=== PATIENT | female | born 1975 | race African-American/Black ===

== ENCOUNTER 2019-06-23 09:04 | Outpatient (CLI) | payer OTHER, SELFPAY ==
--- NOTE | ~2019-06-23 | MR_ITS ---
EXAMINATION: 1. MR hand RT wo/w con 2. MR hand LT wo/w con DATE: 06/23/2019 11:18 INDICATION: Rheumatoid arthritis, unspecified. TECHNIQUE: Magnetic resonance imaging (MRI) of the right hand and left hand was performed without and with 17 mL MultiHance intravenous contrast. Sequences included coronal, axial, and sagittal T1-weigh jcarlos FSE and T2-weighted FS FSE, axial T1-weighted FS FSE, and postcontrast axial and coronal T1-weigh jcarlos FS FSE. COMPARISON: Hand radiographs 06/30/2018 FINDINGS: RIGHT HAND MRI: Bone alignment is normal. No fracture. There is enhancing material in and around the second metacarpophalangeal joint with erosions of the head of second metacarpal and base of second pr oximal phalanx with edema-like marrow signal intensity. There is enhancing synovitis involving the ot her metacarpophalangeal joints. There is mild to moderate osteoarthritis of many of the interphalange al joints with a distal predominance. There is enhancing tenosynovitis involving the common flexor sh eath (ulnar bursa) consisting of the fifth digit and carpal tunnel flexor tendons. There is enhancing tenosynovitis involving the flexor pollicis longus tendon sheath (radial bursa). LEFT HAND MRI: Bone alignment is normal. No fracture. There is enhancing material in and around the s econd metacarpophalangeal joint with erosions of the head of second metacarpal and base of second pro ximal phalanx with edema-like marrow signal intensity. There is enhancing synovitis involving the oth er metacarpophalangeal joints and first interphalangeal joint. There is enhancing tenosynovitis invol ving the common flexor sheath (ulnar bursa) consisting of the fifth digit and carpal tunnel flexor te ndons. There is enhancing tenosynovitis involving the flexor pollicis longus tendon sheath (radial bu rsa). There is tenosynovitis of the 2nd common digital sheath. IMPRESSION: 1. Inflammatory arthropathy, worst at the bilateral second metacarpophalangeal joints. Bilateral teno synovitis. These findings are consistent with rheumatoid arthritis. Reviewed, dictated and finalized at location A. IMPRESSION: 1. Inflammatory arthropathy, worst at the bilateral second metacarpophalangeal joints. Bilateral tenosynovitis. These findings are consistent with rheumatoid arthritis.
[2019-06-23 09:40] LABS: Estimated Glomerular Filt Rate > 60
== END 2019-06-23 09:05 | disposition home or self-care (01) ==
LOC: ANHIMG 09:06
PROVIDERS: Visit Provider Internal Medicine
DX: M06.9 Rheumatoid arthritis, unspecified (principal); M65.842 Other synovitis and tenosynovitis, left hand; M65.841 Other synovitis and tenosynovitis, right hand
CPT/HCPCS: 36415; 73220; A9577

== ENCOUNTER 2019-07-26 17:36 | Outpatient (CLI) | payer OTHER, SELFPAY ==
[2019-07-26 18:45] LABS: Basophils Percent Auto 0.5 % (0.2-1.2); Eosinophils Percent Auto 0.4 % (0-4.4); Hematocrit 31.6 % (37.0-47.0); Hemoglobin 10.3 g/dL (12.0-15.0); Immature Granulocyte Absolute 0.03 K/mm3 (0.00-0.031); Immature Granulocyte Percent A 0.4 % (0-0.5); Lymphocytes Absolute Auto 2.69 K/mm3 (0.9-3.2); Lymphocytes Percent Auto 35.5 % (18.3-44.2); Mean Corpuscular HGB Conc 32.6 g/dl (32-36); Mean Corpuscular Hemoglobin 23.3 pg (26-34); Mean Corpuscular Volume 71.3 fl (80-100); Mean Platelet Volume 9.3 fl (7.4-10.4); Monocytes Absolute Auto 0.4 K/mm3 (0.1-0.6); Monocytes Percent Auto 4.9 % (2.6-8.5); Neutrophils Absolute Auto 4.4 K/mm3 (1.3-6.7); Neutrophils Percent Auto 58.3 % (45.5-73.1); Platelet Count Result 312 k/mm3 (150-375); Red Blood Count 4.43 M/mm3 (4.2-5.4); Red Cell Distribution Width 18.6 % (11.5-14.5); White Blood Count 7.6 K/mm3 (4.5-10.0)
[2019-07-26 18:53] LABS: Add Urine Microscopic? YES; Appearance Urine Clear (Clear); Bacteria Urine Trace /hpf; Bilirubin Urine Negative (Negative); Blood Urine Negative (Negative); Color Urine Yellow (Yellow); Glucose Urine UA Negative (Negative); Ketones Urine Negative (Negative); Leukocyte Esterase Ur Negative LEU/UL (Negative); Mucus Urine Rare /lpf; Nitrate Urine Negative (Negative); Protein Urine Negative (Negative); Squamous Epithelial Cell Urine Rare /hpf (Few); Urobilinogen Urine Negative mg/dL (<2.0); WBC Urine 0-3 /hpf
[2019-07-26 19:00] LABS: Alanine Aminotransferase 28 U/L (4-35); Albumin Level 4.5 g/dL (3.5-5.1); Alkaline Phosphatase 69 U/L (38-126); Aspartate Amino Transferase 40 U/L (14-36); Bilirubin,Total 0.4 mg/dL (0.2-1.3); Blood Urea Nitrogen 14 mg/dL (7-17); CRP < 0.5 mg/dL (<1.0); Carbon Dioxide 26 mmol/L (22-30); Chloride 103 mmol/L (98-107); Estimated Glomerular Filt Rate > 60; Glucose 63 mg/dL (65-105); Sodium 135 mmol/L (137-145)
[2019-07-30 22:01] LABS: NIL 0.04 IU/mL; Quantiferon TB Plus, 1T NEGATIVE (NEGATIVE); TB1-NIL 0.03 IU/mL; TB2-NIL 0.01 IU/mL
== END 2019-07-26 17:37 | disposition home or self-care (01) ==
PROVIDERS: Visit Provider Internal Medicine
DX: M05.79 Rheumatoid arthritis with rheumatoid factor of multiple sites without organ or systems involvement (principal); M19.90 Unspecified osteoarthritis, unspecified site; M06.9 Rheumatoid arthritis, unspecified; Z71.89 Other specified counseling
CPT/HCPCS: 36415; 80053; 81001; 85025; 86140; 86480

== ENCOUNTER 2023-04-01 12:18 | Outpatient (CLI) | payer OTHER, SELFPAY ==
--- NOTE | ~2023-04-01 | XR_ITS ---
Right Knee Technique: AP, lateral, and sunrise views were obtained. Clinical History: Rheumatoid arthritis Findings: No fracture or dislocation is seen. Small joint effusion present. There is mild tricompartm ental degenerative spurring. Impression: Mild tricompartmental degenerative spurring. Small joint effusion. [place] [facility] [place] Impression: Mild tricompartmental degenerative spurring. Small joint effusion.
--- NOTE | ~2023-04-01 | XR_ITS ---
Left Knee Technique: AP, lateral, and sunrise views were obtained. Clinical History: Rheumatoid arthritis Findings: No fracture or dislocation is seen. There is moderate tricompartmental spurring. Large join t effusion present. Probable loose body versus meniscal ossicle laterally. Impression: Large joint effusion. Moderate tricompartmental osteoarthritic spurring. Meniscal ossicle versus loose body laterally. Reviewed, dictated and finalized at location . 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 Moderate tricompartmental osteoarthritic spurring. Meniscal ossicle versus loose body laterally.
--- NOTE | ~2023-04-01 | XR_ITS ---
EXAMINATION: XR hand BI arthritis min 3V DATE: 04/01/2023 12:59 INDICATION: Unspecified osteoarthritis, unspecified site. TECHNIQUE: 4 views of right hand and 4 views of left hand on a total of 7 radiographs were obtained. COMPARISON: Bilateral hand radiographs 06/30/2018 MRI 06/23/2019 FINDINGS: RIGHT HAND: Bone alignment is normal. No fracture. There is mild osteoarthritis of first carpometacar pal joint. There are erosions of second metacarpophalangeal joint. There is moderate osteoarthritis o f second distal interphalangeal joint and fourth proximal interphalangeal joint. There is mild osteoa rthritis of many of the interphalangeal joints. LEFT HAND: There is ulnar subluxation of third distal phalanx with respect to the middle phalanx. The re is mild osteoarthritis of first carpometacarpal joint and many of the interphalangeal joints. Ther e are erosions of second metacarpophalangeal joint. There is severe osteoarthritis of third distal in terphalangeal joint and moderate osteoarthritis of second fourth distal interphalangeal joints. IMPRESSION: 1. Erosions of the bilateral second metacarpophalangeal joints with worsening from 06/30/2018, consist ent with rheumatoid arthritis. 2. Polyarticular osteoarthritis. Reviewed, dictated and finalized at location E. 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 Erosions of the bilateral second metacarpophalangeal joints with worsening f rom 06/30/2018, consistent with rheumatoid arthritis. 2. Polyarticular osteoarthritis.
[2023-04-01 12:48] LABS: Hemoglobin 12.6 g/dL (12.0-15.0); Mean Corpuscular HGB Conc 33.2 g/dl (32-36); Mean Corpuscular Hemoglobin 27.8 pg (26-34); Mean Corpuscular Volume 83.9 fl (80-100); Mean Platelet Volume 9.2 fl (7.4-10.4); Platelet Count Result 311 k/mm3 (150-375); Red Blood Count 4.53 M/mm3 (4.2-5.4); Red Cell Distribution Width 17.2 % (11.5-14.5); White Blood Count 10.4 K/mm3 (4.5-10.0)
[2023-04-01 13:04] LABS: Alanine Aminotransferase 26 U/L (6-35); Albumin Level 3.6 g/dL (3.5-5.1); Alkaline Phosphatase 402 U/L (38-126); Anion Gap 2 mmol/L (8-16); Aspartate Amino Transferase 48 U/L (14-36); Blood Urea Nitrogen 13 mg/dL (7-17); CRP 2.5 mg/dL (<1.0); Calcium 9.4 mg/dL (8.4-10.2); Carbon Dioxide 30 mmol/L (22-30); Chloride 107 mmol/L (98-107); Estimated Glomerular Filt Rate > 60; Glucose 74 mg/dL (65-110); Potassium 4.2 mmol/L (3.4-5.0); Sodium 139 mmol/L (137-145)
[2023-04-01 13:28] LABS: Erythrocyte Sedimentation Rate 69 mm/hr (0-20)
[2023-04-01 13:44] LABS: Hepatitis B Surface Antigen Negative (Negative)
[2023-04-01 14:02] LABS: Hepatitis B Surface Anti Res Negative; Hepatitis C Virus Antibody Negative (Negative)
[2023-04-03 11:44] LABS: NIL 0.02 IU/mL; Quantiferon TB Plus, 1T NEGATIVE (NEGATIVE)
== END 2023-04-01 12:19 | disposition home or self-care (01) ==
LOC: ANHLAB 12:21
PROVIDERS: Visit Provider Internal Medicine
DX: M05.79 Rheumatoid arthritis with rheumatoid factor of multiple sites without organ or systems involvement (principal); M19.042 Primary osteoarthritis, left hand; M19.041 Primary osteoarthritis, right hand; M17.0 Bilateral primary osteoarthritis of knee; M25.461 Effusion, right knee; M25.462 Effusion, left knee
CPT/HCPCS: 36415; 73130; 73564; 80053; 85027; 85652; 86140; 86480; 86706; 86803; 87340

== ENCOUNTER 2024-05-13 13:56 | Outpatient (CLI) | payer OTHER, SELFPAY | END 2024-05-13 13:57 | disposition home or self-care (01) | PROVIDERS: Visit Provider Internal Medicine | DX: M71.21 Synovial cyst of popliteal space [Baker], right knee (principal); M17.11 Unilateral primary osteoarthritis, right knee; M25.461 Effusion, right knee | CPT/HCPCS: 73718 ==